=== PATIENT | male | born 1940 | race Caucasian/White ===

== ENCOUNTER 2017-03-12 06:44 | Inpatient (IN) | payer OTHER ==
[~2017-03-12] VITALS: Ht 182.9 cm; Wt 97.5 kg
[2017-03-12] VITALS (11 sets, daily range): BP systolic 110–148; BP diastolic 54–74
[2017-03-12 07:14] LABS: HEMATOCRIT 25.6 % (38.0-50.0); HEMOGLOBIN 8.1 G/DL (12.5-16.6); MCH 30.9 PG (29.0-34.0); MCHC 31.6 G/DL (30.0-36.0); MCV 97.7 FL (86-99); NRBC (%) 12.7 /100 WBC (0-0); PLATELET COUNT 80 K/uL (156-360); RBC DIS.WIDTH-CV 22.5 % (11.8-14.6); RBC DIS.WIDTH-SD 79.3 % (39-53); RED BLOOD COUNT 2.62 M/uL (4.00-5.50)
[2017-03-12 07:24] LABS: BASOPHIL (%) 0.3 % (0-1); EOSINOPHIL (%) 0.2 % (0-5); IMMATURE GRANULOCYTE (%) 3.5 % (0.0-0.7); LYMPHOCYTE (%) 9.1 % (15-42); LYMPHOCYTE COUNT 0.6 K/uL (1.0-2.8); MONOCYTE (%) 8.3 % (3-12); MONOCYTE COUNT 0.5 K/uL (0-0.8); NEUTROPHIL (%) 78.6 % (45-76); NEUTROPHIL COUNT 4.8 K/uL (1.8-6.4)
[2017-03-12 07:29] LABS: PTT 25.6 SEC (25-37)
[2017-03-12 07:37] LABS: TROP-I INTERPRETATION NEGATIVE; TROPONIN-I 0.17 ng/mL (0.0-0.30)
[2017-03-12 07:46] LABS: CHLORIDE 97 mEq/L (99-109); POTASSIUM 4.3 mEq/L (3.7-5.4); SODIUM 135 mEq/L (136-147)
[2017-03-12 07:48] LABS: GLUCOSE 129 mg/dL (70-99)
[2017-03-12 07:52] LABS: GFR ESTIMATE (CALCULATED) > 59 mL/min/ (58.99-99999); UREA NITROGEN (BUN) 32 mg/dL (9-23)
[2017-03-12 09:49] LABS: DIGOXIN 1.2 ng/mL (0.8-2.0)
[2017-03-12] MEDS ORDERED: LO-DOSE ASPIRIN81 M1 PO (11:28)
[2017-03-12] MEDS ORDERED: LIPITOR10 MG PO (11:29)
[2017-03-12] MEDS ORDERED: ATORVASTATIN CA10 MG PO (11:30)
[2017-03-12] MEDS ORDERED: CASODEX50 MG PO (11:32)
[2017-03-12] MEDS ORDERED: COUMADIN2.5 MG PO (11:33)
[2017-03-12] MEDS ORDERED: DIGOXIN125 MCG PO (11:34)
[2017-03-12] MEDS ORDERED: MIRALAX17 GM PO (11:35)
[2017-03-12] MEDS ORDERED: FOLIC ACID1 MG PO (11:35)
[2017-03-12] MEDS ORDERED: FLOMAX0.4 MG PO (11:36)
[2017-03-12] MEDS ORDERED: VENLAFAXINE HCL75 M3 PO (11:37)
[2017-03-12] MEDS ORDERED: TUMS500 MG PO (11:38)
[2017-03-12] MEDS ORDERED: PREDNISONE10 MG PO (11:38)
[2017-03-12 11:39] LABS: HEMATOCRIT 24.6 % (38.0-50.0); HEMOGLOBIN 7.8 G/DL (12.5-16.6); MCV 96.9 FL (86-99)
[2017-03-12] MEDS ORDERED: COMPAZINE10 MG PO (11:39)
[2017-03-12] MEDS ORDERED: AMBIEN5 MG PO (11:40)
[2017-03-12] MEDS ORDERED: ACETAMINOPHEN325 M1 PO (11:40)
[2017-03-12] MEDS ORDERED: MORPHINE SULFAT15 MG PO (11:43)
[2017-03-12 12:10] LABS: ALBUMIN 3.2 g/dL (3.2-4.8)
[2017-03-12 12:13] LABS: TOTAL PROTEIN 5.5 g/dL (6.4-8.3)
[2017-03-12 12:15] LABS: TOTAL BILIRUBIN 1.1 mg/dL (0.0-1.0)
[2017-03-12 12:16] LABS: ALKALINE PHOSPHATASE 1378 IU/L (3-129)
[2017-03-12 12:18] LABS: AST (GOT) 31 IU/L (2-34); DIRECT BILIRUBIN 0.6 mg/dL (0.0-0.3)
[2017-03-12 12:19] LABS: ALT (GPT) 35 IU/L (3-49)
[2017-03-12 14:02] LABS: APPEARANCE SL.HAZY ((CLEAR)); BILIRUBIN NEGATIVE; BLOOD MODERATE; COLOR YELLOW ((YELLOW)); GLUCOSE (STRIP) NEGATIVE; KETONES 5; LEUKOCYTES NEGATIVE; NITRITE NEGATIVE; PROTEIN (STRIP) NEGATIVE; SPECIFIC GRAVITY 1.017 (1.000-1.030); UROBILINOGEN 0.2 MG/DL (0.2-1.0)
[2017-03-12 14:14] LABS: BACTERIA NONE SEEN /HPF; EPITHELIAL CELLS RARE /HPF; HYALINE CASTS 0-5 /LPF; MUCUS TRACE /LPF; RED BLOOD CELLS 15-20 /HPF (0-5); WHITE BLOOD CELLS 0-5 /HPF (0-5)
[2017-03-13] VITALS (7 sets, daily range): BP systolic 124–152; BP diastolic 58–78
[2017-03-13 02:08] LABS: HEMATOCRIT 30.9 % (38.0-50.0)
[2017-03-13 02:09] LABS: HEMOGLOBIN 9.8 G/DL (12.5-16.6); MCV 89.6 FL (86-99)
[2017-03-13 06:26] LABS: HEMATOCRIT 32.3 % (38.0-50.0); MCH 27.5 PG (29.0-34.0); NRBC (%) 5.5 /100 WBC (0-0); PLATELET COUNT 74 K/uL (156-360); RBC DIS.WIDTH-CV 26.1 % (11.8-14.6); RBC DIS.WIDTH-SD 81.1 % (39-53); WHITE BLOOD COUNT 6.2 K/uL (4.1-10.2)
[2017-03-13 06:32] LABS: INTER. NORMALIZED RATIO 1.9
[2017-03-13 06:42] LABS: RED BLOOD COUNT 3.63 M/uL (4.00-5.50)
[2017-03-13 06:57] LABS: CHLORIDE 98 MEQ/L (99-109); CREATININE 0.9 MG/DL (0.6-1.3); GFR ESTIMATE (CALCULATED) > 59 mL/min/ (58.99-99999); GLUCOSE 120 mg/dL (70-99); POTASSIUM 4.3 MEQ/L (3.7-5.4); SODIUM 135 MEQ/L (136-147); UREA NITROGEN (BUN) 28 mg/dL (9-23)
[2017-03-13 07:55] LABS: ALBUMIN 3.2 G/DL (3.2-4.8); ALKALINE PHOSPHATASE 1156 IU/L (3-129); ALT (GPT) 35 IU/L (3-49); AST (GOT) 31 IU/L (2-34); DIRECT BILIRUBIN 0.4 mg/dL (0.0-0.3); TOTAL BILIRUBIN 1.4 MG/DL (0.0-1.0)
[2017-03-14] VITALS (8 sets, daily range): BP systolic 120–157; BP diastolic 57–80
[2017-03-14 05:54] LABS: HEMATOCRIT 30.9 % (38.0-50.0); HEMOGLOBIN 9.8 G/DL (12.5-16.6); MCH 28.2 PG (29.0-34.0); MCHC 31.7 G/DL (30.0-36.0); NRBC (%) 4.8 /100 WBC (0-0); PLATELET COUNT 70 K/uL (156-360); RBC DIS.WIDTH-CV 25.8 % (11.8-14.6); RBC DIS.WIDTH-SD 79.5 % (39-53); RED BLOOD COUNT 3.47 M/uL (4.00-5.50)
[2017-03-14 05:58] LABS: INTER. NORMALIZED RATIO 2.1
[2017-03-14 06:30] LABS: CHLORIDE 98 MEQ/L (99-109); CREATININE 0.9 MG/DL (0.6-1.3); GFR ESTIMATE (CALCULATED) > 59 mL/min/ (58.99-99999); GLUCOSE 131 mg/dL (70-99); POTASSIUM 4.2 MEQ/L (3.7-5.4); SODIUM 135 MEQ/L (136-147); UREA NITROGEN (BUN) 21 mg/dL (9-23)
[2017-03-15 03:42] VITALS: BP 122/68
[2017-03-15 06:45] LABS: INTER. NORMALIZED RATIO 1.9
[2017-03-15 06:47] LABS: PTT 27.9 SEC (25-37)
[2017-03-15 06:53] LABS: CHLORIDE 100 MEQ/L (99-109); CREATININE 0.9 MG/DL (0.6-1.3); GFR ESTIMATE (CALCULATED) > 59 mL/min/ (58.99-99999); GLUCOSE 112 mg/dL (70-99); POTASSIUM 3.9 MEQ/L (3.7-5.4); SODIUM 138 MEQ/L (136-147); UREA NITROGEN (BUN) 17 mg/dL (9-23)
[2017-03-15 07:06] VITALS: BP 124/61
[2017-03-15 07:06] LABS: HEMATOCRIT 31.2 % (38.0-50.0); HEMOGLOBIN 9.9 G/DL (12.5-16.6); MCH 28.5 PG (29.0-34.0); MCHC 31.7 G/DL (30.0-36.0); MCV 89.9 FL (86-99); NRBC (%) 2.1 /100 WBC (0-0); PLATELET COUNT 71 K/uL (156-360); RBC DIS.WIDTH-CV 25.6 % (11.8-14.6); RED BLOOD COUNT 3.47 M/uL (4.00-5.50); WHITE BLOOD COUNT 4.8 K/uL (4.1-10.2)
[2017-03-15 11:48] VITALS: BP 168/95
[2017-03-15 15:17] VITALS: BP 133/67
[2017-03-15 19:09] VITALS: BP 120/59
[2017-03-15 23:22] VITALS: BP 119/67
[2017-03-16 03:30] VITALS: BP 159/79
[2017-03-16 07:44] LABS: INTER. NORMALIZED RATIO 2.1
[2017-03-16 08:02] VITALS: BP 115/70
[2017-03-16 08:36] LABS: HEMATOCRIT 32.3 % (38.0-50.0); MCV 90.5 FL (86-99); PLATELET COUNT 76 K/uL (156-360); RBC DIS.WIDTH-CV 25.6 % (11.8-14.6); RBC DIS.WIDTH-SD 84.6 % (39-53); RED BLOOD COUNT 3.57 M/uL (4.00-5.50)
[2017-03-16 11:30] VITALS: BP 123/67
[2017-03-16] MEDS ORDERED: LOPRESSOR25 MG PO (15:21)
[2017-03-16 15:58] VITALS: BP 134/64
[2017-03-16 16:21] LABS: ALBUMIN 3.1 G/DL (3.2-4.8); ALKALINE PHOSPHATASE 851 IU/L (3-129); ALT (GPT) 35 IU/L (3-49); AST (GOT) 23 IU/L (2-34); CHLORIDE 101 MEQ/L (99-109); CREATININE 0.8 MG/DL (0.6-1.3); GFR ESTIMATE (CALCULATED) > 59 mL/min/ (58.99-99999); GLUCOSE 141 mg/dL (70-99); MAGNESIUM 2.1 mg/dl (1.3-2.7); POTASSIUM 3.9 MEQ/L (3.7-5.4); SODIUM 137 MEQ/L (136-147); TOTAL BILIRUBIN 1.2 MG/DL (0.0-1.0); TOTAL PROTEIN 5.3 G/DL (6.4-8.3); UREA NITROGEN (BUN) 18 mg/dL (9-23)
[2017-03-16 18:11] LABS: INTACT PARATHYROID HORMONE 304 pg/mL (10-69)
[2017-03-16 19:05] VITALS: BP 125/68
[2017-03-17 00:35] VITALS: BP 165/114
[2017-03-17 04:30] VITALS: BP 131/65
[2017-03-17 08:42] LABS: HEMATOCRIT 30.6 % (38.0-50.0); HEMOGLOBIN 9.4 G/DL (12.5-16.6); MCH 27.6 PG (29.0-34.0); WHITE BLOOD COUNT 2.4 K/uL (4.1-10.2)
[2017-03-17 08:43] LABS: IMM.RETIC FRACTION 20.6 % (3-19); MCHC 30.7 G/DL (30.0-36.0); NRBC (%) 3.3 /100 WBC (0-0); PLATELET COUNT 71 K/uL (156-360); RBC DIS.WIDTH-CV 25.6 % (11.8-14.6); RBC DIS.WIDTH-SD 83.6 % (39-53); RETIC HGB EQUIVALENT 34.7 (28-36); RETICULOCYTE COUNT 3.3 % (0.5-1.8)
[2017-03-17 08:44] VITALS: BP 145/70
[2017-03-17 09:13] LABS: CHLORIDE 100 MEQ/L (99-109); CREATININE 0.9 MG/DL (0.6-1.3); GAMMA-GT 52 IU/L (4-73); GFR ESTIMATE (CALCULATED) > 59 mL/min/ (58.99-99999); GLUCOSE 146 mg/dL (70-99); POTASSIUM 3.8 MEQ/L (3.7-5.4); SODIUM 138 MEQ/L (136-147); UREA NITROGEN (BUN) 20 mg/dL (9-23)
[2017-03-17 09:14] LABS: ALBUMIN 2.9 G/DL (3.2-4.8); ALKALINE PHOSPHATASE 757 IU/L (3-129); ALT (GPT) 32 IU/L (3-49); AST (GOT) 19 IU/L (2-34); DIRECT BILIRUBIN 0.4 mg/dL (0.0-0.3); TOTAL BILIRUBIN 1.2 MG/DL (0.0-1.0); TOTAL PROTEIN 4.9 G/DL (6.4-8.3)
[2017-03-17 09:31] LABS: LACTATE DEHYDROGENASE 420 IU/L (20-246)
[2017-03-17 09:38] LABS: FIBRINOGEN 420 mg/dL (150-450); INTER. NORMALIZED RATIO 1.9
[2017-03-17 11:16] VITALS: BP 122/69
[2017-03-17 15:40] VITALS: BP 1616/77
[2017-03-17 20:04] VITALS: BP 153/82
[2017-03-18] VITALS (7 sets, daily range): BP systolic 120–154; BP diastolic 67–91
[2017-03-18 07:20] LABS: HEMATOCRIT 27.1 % (38.0-50.0); HEMOGLOBIN 8.5 G/DL (12.5-16.6); MCH 28.2 PG (29.0-34.0); MCHC 31.4 G/DL (30.0-36.0); NRBC (%) 3.2 /100 WBC (0-0); PLATELET COUNT 72 K/uL (156-360); RBC DIS.WIDTH-CV 25.2 % (11.8-14.6); RED BLOOD COUNT 3.01 M/uL (4.00-5.50)
[2017-03-18 07:21] LABS: WHITE BLOOD COUNT 1.9 K/uL (4.1-10.2)
[2017-03-18 07:37] LABS: CHLORIDE 97 MEQ/L (99-109); CREATININE 0.8 MG/DL (0.6-1.3); GFR ESTIMATE (CALCULATED) > 59 mL/min/ (58.99-99999); GLUCOSE 135 mg/dL (70-99); POTASSIUM 4.1 MEQ/L (3.7-5.4); SODIUM 134 MEQ/L (136-147); UREA NITROGEN (BUN) 23 mg/dL (9-23)
[2017-03-18 07:43] LABS: INTER. NORMALIZED RATIO 1.8
[2017-03-19 04:00] VITALS: BP 146/88
[2017-03-19 06:14] LABS: CHLORIDE 96 MEQ/L (99-109); GFR ESTIMATE (CALCULATED) > 59 mL/min/ (58.99-99999); GLUCOSE 136 mg/dL (70-99); HEMATOCRIT 29.5 % (38.0-50.0); HEMOGLOBIN 9.2 G/DL (12.5-16.6); MCHC 31.2 G/DL (30.0-36.0); MCV 89.7 FL (86-99); NRBC (%) 5.7 /100 WBC (0-0); PLATELET COUNT 69 K/uL (156-360); POTASSIUM 4.3 MEQ/L (3.7-5.4); RBC DIS.WIDTH-CV 24.7 % (11.8-14.6); RBC DIS.WIDTH-SD 79.9 % (39-53); RED BLOOD COUNT 3.29 M/uL (4.00-5.50); SODIUM 133 MEQ/L (136-147); UREA NITROGEN (BUN) 25 mg/dL (9-23)
[2017-03-19 06:16] LABS: INTER. NORMALIZED RATIO 2.1
[2017-03-19 06:18] LABS: WHITE BLOOD COUNT 1.7 K/uL (4.1-10.2)
[2017-03-19 07:26] VITALS: BP 141/63
[2017-03-19 08:48] LABS: ALBUMIN 2.7 G/DL (3.2-4.8); ALKALINE PHOSPHATASE 693 IU/L (3-129); ALT (GPT) 23 IU/L (3-49); AST (GOT) 16 IU/L (2-34); DIRECT BILIRUBIN 0.3 mg/dL (0.0-0.3); TOTAL PROTEIN 4.7 G/DL (6.4-8.3)
[2017-03-19 08:51] LABS: TOTAL BILIRUBIN 0.9 MG/DL (0.0-1.0)
[2017-03-19 11:04] VITALS: BP 110/55
[2017-03-19 14:52] LABS: APPEARANCE CLEAR ((CLEAR)); BILIRUBIN NEGATIVE; BLOOD LARGE; COLOR YELLOW ((YELLOW)); GLUCOSE (STRIP) NEGATIVE; KETONES NEGATIVE; LEUKOCYTES NEGATIVE; NITRITE NEGATIVE; PROTEIN (STRIP) NEGATIVE; SPECIFIC GRAVITY 1.012 (1.000-1.030); UROBILINOGEN 0.2 MG/DL (0.2-1.0)
[2017-03-19 14:55] LABS: BACTERIA 1+ /HPF; EPITHELIAL CELLS NONE SEEN /HPF; MUCUS TRACE /LPF; RED BLOOD CELLS 30-40 /HPF (0-5); UCUL ADDED? YES
[2017-03-19 16:18] VITALS: BP 139/72
[2017-03-19 19:00] VITALS: BP 167/77
[2017-03-19 23:00] VITALS: BP 136/75
[2017-03-20 03:00] VITALS: BP 166/94
[2017-03-20 04:55] LABS: ALBUMIN 2.4 g/dL (3.2-4.8)
[2017-03-20 04:56] LABS: CHLORIDE 103 mEq/L (99-109); POTASSIUM 4.1 mEq/L (3.7-5.4); SODIUM 137 mEq/L (136-147)
[2017-03-20 04:58] LABS: GLUCOSE 166 mg/dL (70-99); HEMATOCRIT 27.4 % (38.0-50.0); HEMOGLOBIN 8.7 G/DL (12.5-16.6); MCH 28.6 PG (29.0-34.0); MCHC 31.8 G/DL (30.0-36.0); MCV 90.1 FL (86-99); NRBC (%) 1.9 /100 WBC (0-0); PLATELET COUNT 62 K/uL (156-360); RBC DIS.WIDTH-CV 25.1 % (11.8-14.6); RBC DIS.WIDTH-SD 82.1 % (39-53); RED BLOOD COUNT 3.04 M/uL (4.00-5.50); TOTAL PROTEIN 4.6 g/dL (6.4-8.3)
[2017-03-20 04:59] LABS: WHITE BLOOD COUNT 1.6 K/uL (4.1-10.2)
[2017-03-20 05:00] LABS: TOTAL BILIRUBIN 0.7 mg/dL (0.0-1.0)
[2017-03-20 05:01] LABS: ALKALINE PHOSPHATASE 657 IU/L (3-129)
[2017-03-20 05:02] LABS: CREATININE 0.8 mg/dL (0.6-1.3); GFR ESTIMATE (CALCULATED) > 59 mL/min/ (58.99-99999)
[2017-03-20 05:03] LABS: AST (GOT) 21 IU/L (2-34); UREA NITROGEN (BUN) 20 mg/dL (9-23)
[2017-03-20 05:05] LABS: ALT (GPT) 26 IU/L (3-49)
[2017-03-20 05:34] LABS: ABS NEUTROPHIL COUNT 1.1; ACANTHOCYTES 1+; ANISOCYTOSIS 1+; EOSINOPHIL ABS CT 0; MICROCYTOSIS 1+; MYELOCYTES 1.2 %; OVALOCYTES 1+; PLAT.SUFFICIENCY DECREASED; POIKILOCYTOSIS 1+; SEG.NEUTROPHILS 67.8 % (46.0-76.0); TEAR DROP CELLS 1+
[2017-03-20 08:30] VITALS: BP 154/73
[2017-03-20 11:09] VITALS: BP 137/77
[2017-03-20 15:36] VITALS: BP 133/75
[2017-03-20 20:00] VITALS: BP 169/71
[2017-03-20 23:55] VITALS: BP 170/82
[2017-03-21 04:00] VITALS: BP 149/96
[2017-03-21 07:30] VITALS: BP 124/75
[2017-03-21 07:34] LABS: INTER. NORMALIZED RATIO 2.3
[2017-03-21 12:33] VITALS: BP 162/88
[2017-03-21 14:25] LABS: HEMATOCRIT 30.7 % (38.0-50.0); HEMOGLOBIN 9.4 G/DL (12.5-16.6); MCH 28.1 PG (29.0-34.0); MCHC 30.6 G/DL (30.0-36.0); MCV 91.9 FL (86-99); NRBC (%) 0.8 /100 WBC (0-0); PLATELET COUNT 72 K/uL (156-360); RBC DIS.WIDTH-CV 25.2 % (11.8-14.6); RBC DIS.WIDTH-SD 85.3 % (39-53); RED BLOOD COUNT 3.34 M/uL (4.00-5.50); WHITE BLOOD COUNT 4.8 K/uL (4.1-10.2)
[2017-03-21 14:57] LABS: ALBUMIN 2.9 G/DL (3.2-4.8); ALKALINE PHOSPHATASE 592 IU/L (3-129); ALT (GPT) 28 IU/L (3-49); CHLORIDE 104 MEQ/L (99-109); CREATININE 0.8 MG/DL (0.6-1.3); DIRECT BILIRUBIN 0.2 mg/dL (0.0-0.3); GFR ESTIMATE (CALCULATED) > 59 mL/min/ (58.99-99999); GLUCOSE 171 mg/dL (70-99); POTASSIUM 4.1 MEQ/L (3.7-5.4); SODIUM 137 MEQ/L (136-147); TOTAL PROTEIN 5.1 G/DL (6.4-8.3)
[2017-03-21 15:16] LABS: AST (GOT) 25 IU/L (2-34); TOTAL BILIRUBIN 0.6 MG/DL (0.0-1.0); UREA NITROGEN (BUN) 31 mg/dL (9-23)
[2017-03-21 16:00] VITALS: BP 149/72
[2017-03-21 20:00] VITALS: BP 163/104
[2017-03-21 23:55] VITALS: BP 166/111
[2017-03-22 04:00] VITALS: BP 175/109
[2017-03-22 05:49] LABS: HEMATOCRIT 32.8 % (38.0-50.0); HEMOGLOBIN 10.3 G/DL (12.5-16.6); MCH 28.8 PG (29.0-34.0); MCHC 31.4 G/DL (30.0-36.0); MCV 91.6 FL (86-99); NRBC (%) 1.1 /100 WBC (0-0); RBC DIS.WIDTH-CV 25.1 % (11.8-14.6); RED BLOOD COUNT 3.58 M/uL (4.00-5.50); WHITE BLOOD COUNT 7.1 K/uL (4.1-10.2)
[2017-03-22 05:56] LABS: INTER. NORMALIZED RATIO 2.8
[2017-03-22 06:56] LABS: ALBUMIN 2.9 G/DL (3.2-4.8); ALKALINE PHOSPHATASE 667 IU/L (3-129); ALT (GPT) 33 IU/L (3-49); AST (GOT) 30 IU/L (2-34); CHLORIDE 104 MEQ/L (99-109); CREATININE 0.9 MG/DL (0.6-1.3); GFR ESTIMATE (CALCULATED) > 59 mL/min/ (58.99-99999); GLUCOSE 148 mg/dL (70-99); POTASSIUM 4.4 MEQ/L (3.7-5.4); SODIUM 139 MEQ/L (136-147); TOTAL PROTEIN 5.2 G/DL (6.4-8.3); UREA NITROGEN (BUN) 32 mg/dL (9-23)
[2017-03-22 06:58] LABS: TOTAL BILIRUBIN 0.8 MG/DL (0.0-1.0)
[2017-03-22 06:59] LABS: ABS NEUTROPHIL COUNT 6.1; ANISOCYTOSIS 2+; BAND NEUTROPHILS 10.5 % (0-8.0); EOSINOPHIL ABS CT 0; MACROCYTES 1+; METAMYELOCYTES 3.5 %; MICROCYTOSIS 1+; MONOCYTES 6.2 % (0-9.0); MYELOCYTES 2.6 %; NUCLEATED RBC'S 0.9; PLAT.SUFFICIENCY DECREASED; PLATELET COUNT 78 K/uL (156-360); POIKILOCYTOSIS 1+; SEG.NEUTROPHILS 75.4 % (46.0-76.0)
[2017-03-22 07:01] LABS: LYMPHOCYTES 1.8 % (15.0-45.0)
[2017-03-22 07:18] VITALS: BP 164/97
[2017-03-22 12:51] VITALS: BP 175/87
[2017-03-22 15:42] VITALS: BP 140/82
[2017-03-22 18:15] LABS: HEMATOCRIT 32.9 % (38.0-50.0); HEMOGLOBIN 10.2 G/DL (12.5-16.6); MCV 90.4 FL (86-99)
[2017-03-22 18:27] LABS: INTER. NORMALIZED RATIO 3.8
[2017-03-22 19:50] VITALS: BP 123/73
[2017-03-22 23:30] VITALS: BP 165/88
[2017-03-23 03:14] VITALS: BP 168/86
[2017-03-23 07:56] VITALS: BP 182/98
[2017-03-23 08:57] LABS: HEMATOCRIT 32.6 % (38.0-50.0); HEMOGLOBIN 10.1 G/DL (12.5-16.6); MCH 28.5 PG (29.0-34.0); MCV 92.1 FL (86-99); NRBC (%) 2.4 /100 WBC (0-0); PLATELET COUNT 77 K/uL (156-360); RBC DIS.WIDTH-CV 25.3 % (11.8-14.6); RBC DIS.WIDTH-SD 85.2 % (39-53); RED BLOOD COUNT 3.54 M/uL (4.00-5.50); WHITE BLOOD COUNT 9.5 K/uL (4.1-10.2)
[2017-03-23 09:02] LABS: INTER. NORMALIZED RATIO 3.9
[2017-03-23 09:28] LABS: ALBUMIN 2.9 G/DL (3.2-4.8); ALKALINE PHOSPHATASE 594 IU/L (3-129); ALT (GPT) 41 IU/L (3-49); AST (GOT) 35 IU/L (2-34); CHLORIDE 106 MEQ/L (99-109); CREATININE 0.9 MG/DL (0.6-1.3); GFR ESTIMATE (CALCULATED) > 59 mL/min/ (58.99-99999); GLUCOSE 161 mg/dL (70-99); POTASSIUM 4.5 MEQ/L (3.7-5.4); SODIUM 138 MEQ/L (136-147); TOTAL BILIRUBIN 0.8 MG/DL (0.0-1.0); TOTAL PROTEIN 4.9 G/DL (6.4-8.3); UREA NITROGEN (BUN) 38 mg/dL (9-23)
[2017-03-23 09:37] LABS: ABS NEUTROPHIL COUNT 8.6; ANISOCYTOSIS 1+; BAND NEUTROPHILS 7.2 % (0-8.0); EOSINOPHIL ABS CT 0; HEMATOLOGY COMMENT 1 SN; LYMPHOCYTES 4.5 % (15.0-45.0); MICROCYTOSIS 1+; MONOCYTES 5.4 % (0-9.0); NUCLEATED RBC'S 4.5; PLAT.SUFFICIENCY DECREASED; POIKILOCYTOSIS 1+; POLYCHROMASIA 1+; SEG.NEUTROPHILS 82.9 % (46.0-76.0); SPHEROCYTES 1+
[2017-03-23 11:20] VITALS: BP 128/66
[2017-03-23 15:46] VITALS: BP 155/80
[2017-03-23 20:21] VITALS: BP 144/80
[2017-03-23 23:38] VITALS: BP 174/87
[2017-03-24] VITALS (7 sets, daily range): BP systolic 129–176; BP diastolic 71–90
[2017-03-24 09:45] LABS: HEMATOCRIT 33.3 % (38.0-50.0); HEMOGLOBIN 10.6 G/DL (12.5-16.6); MCHC 31.8 G/DL (30.0-36.0); MCV 91.2 FL (86-99); NRBC (%) 2.4 /100 WBC (0-0); PLATELET COUNT 82 K/uL (156-360); RBC DIS.WIDTH-CV 25.3 % (11.8-14.6); RBC DIS.WIDTH-SD 84.7 % (39-53); RED BLOOD COUNT 3.65 M/uL (4.00-5.50); WHITE BLOOD COUNT 12.8 K/uL (4.1-10.2)
[2017-03-24 10:16] LABS: ALBUMIN 2.9 G/DL (3.2-4.8); ALKALINE PHOSPHATASE 575 IU/L (3-129); ALT (GPT) 43 IU/L (3-49); AST (GOT) 33 IU/L (2-34); CHLORIDE 107 MEQ/L (99-109); CREATININE 0.9 MG/DL (0.6-1.3); GFR ESTIMATE (CALCULATED) > 59 mL/min/ (58.99-99999); GLUCOSE 185 mg/dL (70-99); SODIUM 141 MEQ/L (136-147); TOTAL BILIRUBIN 0.9 MG/DL (0.0-1.0); UREA NITROGEN (BUN) 39 mg/dL (9-23)
[2017-03-25] VITALS (8 sets, daily range): BP systolic 103–168; BP diastolic 58–85
[2017-03-25 07:19] LABS: HEMATOCRIT 30.3 % (38.0-50.0); HEMOGLOBIN 9.4 G/DL (12.5-16.6); MCH 28.7 PG (29.0-34.0); MCV 92.7 FL (86-99); NRBC (%) 7.8 /100 WBC (0-0); PLATELET COUNT 72 K/uL (156-360); RBC DIS.WIDTH-CV 25.5 % (11.8-14.6); RBC DIS.WIDTH-SD 86.4 % (39-53); RED BLOOD COUNT 3.27 M/uL (4.00-5.50); WHITE BLOOD COUNT 4.5 K/uL (4.1-10.2)
[2017-03-25 07:44] LABS: INTER. NORMALIZED RATIO 2.5
[2017-03-25 07:51] LABS: ALBUMIN 2.4 G/DL (3.2-4.8); ALKALINE PHOSPHATASE 483 IU/L (3-129); ALT (GPT) 37 IU/L (3-49); AST (GOT) 32 IU/L (2-34); CHLORIDE 112 MEQ/L (99-109); CREATININE 0.9 MG/DL (0.6-1.3); GFR ESTIMATE (CALCULATED) > 59 mL/min/ (58.99-99999); GLUCOSE 160 mg/dL (70-99); POTASSIUM 4.3 MEQ/L (3.7-5.4); SODIUM 143 MEQ/L (136-147); UREA NITROGEN (BUN) 46 mg/dL (9-23)
[2017-03-25 07:52] LABS: TOTAL BILIRUBIN 0.7 MG/DL (0.0-1.0); TOTAL PROTEIN 4.2 G/DL (6.4-8.3)
[2017-03-26 03:40] VITALS: BP 129/93
[2017-03-26 07:40] LABS: INTER. NORMALIZED RATIO 2.8
[2017-03-26 11:51] VITALS: BP 138/52
[2017-03-26 20:41] VITALS: BP 146/82
[2017-03-27 00:17] VITALS: BP 138/72
[2017-03-27 04:23] VITALS: BP 134/74
[2017-03-27 07:46] VITALS: BP 137/89
[2017-03-27 08:13] LABS: INTER. NORMALIZED RATIO 2.7
[2017-03-27 10:52] LABS: HEMATOCRIT 32.9 % (38.0-50.0); HEMOGLOBIN 9.8 G/DL (12.5-16.6); MCH 28.2 PG (29.0-34.0); MCHC 29.8 G/DL (30.0-36.0); MCV 94.5 FL (86-99); NRBC (%) 9.1 /100 WBC (0-0); PLATELET COUNT 76 K/uL (156-360); RBC DIS.WIDTH-CV 26.5 % (11.8-14.6); RED BLOOD COUNT 3.48 M/uL (4.00-5.50); WHITE BLOOD COUNT 2.6 K/uL (4.1-10.2)
[2017-03-27 11:08] LABS: ALBUMIN 2.8 G/DL (3.2-4.8); ALKALINE PHOSPHATASE 501 IU/L (3-129); ALT (GPT) 51 IU/L (3-49); AST (GOT) 41 IU/L (2-34); CHLORIDE 112 MEQ/L (99-109); CREATININE 1.1 MG/DL (0.6-1.3); GFR ESTIMATE (CALCULATED) > 59 mL/min/ (58.99-99999); GLUCOSE 168 mg/dL (70-99); POTASSIUM 4.5 MEQ/L (3.7-5.4); SODIUM 147 MEQ/L (136-147); TOTAL BILIRUBIN 0.8 MG/DL (0.0-1.0); TOTAL PROTEIN 4.6 G/DL (6.4-8.3); UREA NITROGEN (BUN) 54 mg/dL (9-23)
[2017-03-27 11:46] VITALS: BP 148/92
[2017-03-27 15:16] VITALS: BP 148/66
[2017-03-27 19:16] VITALS: BP 178/91
[2017-03-28 00:03] VITALS: BP 177/86
[2017-03-28 04:33] VITALS: BP 159/80
[2017-03-28 07:35] LABS: INTER. NORMALIZED RATIO 2.7
[2017-03-28 08:34] VITALS: BP 162/78
[2017-03-28 17:34] VITALS: BP 142/82
[2017-03-28 20:42] VITALS: BP 132/70
[2017-03-29] VITALS (7 sets, daily range): BP systolic 112–172; BP diastolic 54–93
[2017-03-29 04:58] LABS: HEMATOCRIT 31.8 % (38.0-50.0); HEMOGLOBIN 9.8 G/DL (12.5-16.6); MCHC 30.8 G/DL (30.0-36.0); MCV 94.1 FL (86-99); NRBC (%) 7.8 /100 WBC (0-0); PLATELET COUNT 89 K/uL (156-360); RBC DIS.WIDTH-CV 26.9 % (11.8-14.6); RBC DIS.WIDTH-SD 90.5 % (39-53); RED BLOOD COUNT 3.38 M/uL (4.00-5.50); WHITE BLOOD COUNT 3.7 K/uL (4.1-10.2)
[2017-03-29 05:04] LABS: INTER. NORMALIZED RATIO 2.2
[2017-03-29 05:10] LABS: CHLORIDE 117 mEq/L (99-109); POTASSIUM 4.1 mEq/L (3.7-5.4); SODIUM 151 mEq/L (136-147)
[2017-03-29 05:11] LABS: GLUCOSE 219 mg/dL (70-99)
[2017-03-29 05:15] LABS: CREATININE 1.2 mg/dL (0.6-1.3); GFR ESTIMATE (CALCULATED) > 59 mL/min/ (58.99-99999)
[2017-03-29 05:16] LABS: UREA NITROGEN (BUN) 68 mg/dL (9-23)
[2017-03-29 06:34] LABS: PREALBUMIN 15.4 mg/dL (10-40)
[2017-03-29 10:36] LABS: MAGNESIUM 2.4 mg/dl (1.3-2.7); PHOSPHORUS 1.8 mg/dL (2.5-4.9)
[2017-03-30 05:55] LABS: INTER. NORMALIZED RATIO 1.6
[2017-03-30 05:57] LABS: HEMATOCRIT 34.2 % (38.0-50.0); HEMOGLOBIN 10.3 G/DL (12.5-16.6); MCH 28.4 PG (29.0-34.0); MCHC 30.1 G/DL (30.0-36.0); MCV 94.2 FL (86-99); NRBC (%) 13.7 /100 WBC (0-0); PLATELET COUNT 78 K/uL (156-360); RBC DIS.WIDTH-CV 26.7 % (11.8-14.6); RBC DIS.WIDTH-SD 91.7 % (39-53); RED BLOOD COUNT 3.63 M/uL (4.00-5.50); WHITE BLOOD COUNT 3.8 K/uL (4.1-10.2)
[2017-03-30 06:11] LABS: CHLORIDE 119 MEQ/L (99-109); CREATININE 1.3 MG/DL (0.6-1.3); GFR ESTIMATE (CALCULATED) 57 mL/min/ (58.99-99999); GLUCOSE 193 mg/dL (70-99); POTASSIUM 4.1 MEQ/L (3.7-5.4); SODIUM 154 MEQ/L (136-147); UREA NITROGEN (BUN) 77 mg/dL (9-23)
[2017-03-30 07:50] VITALS: BP 163/87
[2017-03-30 11:52] VITALS: BP 138/85
[2017-03-30 19:44] VITALS: BP 143/73
[2017-03-31] VITALS (7 sets, daily range): BP systolic 105–135; BP diastolic 52–70
[2017-03-31 07:54] LABS: HEMOGLOBIN 9.1 G/DL (12.5-16.6); MCH 28.8 PG (29.0-34.0); MCHC 29.4 G/DL (30.0-36.0); MCV 98.1 FL (86-99); NRBC (%) 21.3 /100 WBC (0-0); PLATELET COUNT 72 K/uL (156-360); RBC DIS.WIDTH-CV 27.4 % (11.8-14.6); RBC DIS.WIDTH-SD 98.2 % (39-53); RED BLOOD COUNT 3.16 M/uL (4.00-5.50)
[2017-03-31 08:03] LABS: INTER. NORMALIZED RATIO 1.5
[2017-03-31 08:15] LABS: CHLORIDE 120 MEQ/L (99-109); GFR ESTIMATE (CALCULATED) 31 mL/min/ (58.99-99999); POTASSIUM 4.4 MEQ/L (3.7-5.4); SODIUM 150 MEQ/L (136-147); UREA NITROGEN (BUN) 96 mg/dL (9-23)
[2017-03-31 08:19] LABS: CREATININE 2.2 MG/DL (0.6-1.3); GLUCOSE 321 mg/dL (70-99)
[2017-04-01 00:30] VITALS: BP 107/71
[2017-04-01 01:04] LABS: BASE EXCESS -3.7 mEq/L (-3 to +3); BICARBONATE 22.1 mEq/L (22-26); CARBOXY HGB 1.5 % (0-5); COMMENTS - BLOOD GASES C+; DEVICE NC; METHEMOGLOBIN 1.4 % (0-1.5); O2 FLOW 3 L/MIN; PCO2 42 mm Hg (35-45); PO2 85 mm Hg (80-100); SITE RR; TOTAL RESP RATE 16 resp/min; pH 7.33 (7.35-7.45)
[2017-04-01 01:10] VITALS: BP 106/62
[2017-04-01 02:00] VITALS: BP 99/61
[2017-04-01 06:00] VITALS: BP 83/53
[2017-04-01 08:00] VITALS: BP 85/51
[2017-04-01 12:00] VITALS: BP 75/40
== END 2017-04-01 16:50 | DRG 377 ==
LOC: EME → EDBD 06:44 → EME 06:44 → 3EAST 09:27 → EDOF 09:27 → ENRESERV 09:29 → CANRESERV 09:29 → ENRESERV 09:50 → 3EAST 11:41 → ENRESERV 03-19 08:47 → 3EAST 03-19 08:49 → ENRESERV 03-19 08:49 → 4EAST 03-19 11:04 → ENRESERV 03-22 06:26 → 3EAST 03-22 06:54 → ENRESERV 04-01 01:21 → 4WEST 04-01 01:23 → ENRESERV 04-01 05:31 → CANRESERV 04-01 12:39 → ENRESERV 04-01 12:39 → 5EAST 04-01 15:26
PROVIDERS: Emergency Medicine; Hospitalist; Internal Medicine; Physician Assistant; Surgery
DX: K92.2 Gastrointestinal hemorrhage, unspecified (principal); D62 Acute posthemorrhagic anemia; N17.9 Acute kidney failure, unspecified; D61.818 Other pancytopenia; A41.9 Sepsis, unspecified organism; J69.0 Pneumonitis due to inhalation of food and vomit; J96.01 Acute respiratory failure with hypoxia; R33.9 Retention of urine, unspecified; R32 Unspecified urinary incontinence; B37.0 Candidal stomatitis; R04.0 Epistaxis; R62.7 Adult failure to thrive; Z51.5 Encounter for palliative care; Z66 Do not resuscitate; C61 Malignant neoplasm of prostate; C79.51 Secondary malignant neoplasm of bone; E46 Unspecified protein-calorie malnutrition; E87.0 Hyperosmolality and hypernatremia; E86.0 Dehydration; R31.9 Hematuria, unspecified; I11.0 Hypertensive heart disease with heart failure; I50.9 Heart failure, unspecified; R79.1 Abnormal coagulation profile; T45.515A Adverse effect of anticoagulants, initial encounter; E78.5 Hyperlipidemia, unspecified; M79.7 Fibromyalgia; F32.9 Major depressive disorder, single episode, unspecified; F41.9 Anxiety disorder, unspecified; I25.10 Atherosclerotic heart disease of native coronary artery without angina pectoris; I42.9 Cardiomyopathy, unspecified; I48.2 Chronic atrial fibrillation; K29.70 Gastritis, unspecified, without bleeding; K42.9 Umbilical hernia without obstruction or gangrene; K57.30 Diverticulosis of large intestine without perforation or abscess without bleeding; K64.2 Third degree hemorrhoids; L89.159 Pressure ulcer of sacral region, unspecified stage; L97.509 Non-pressure chronic ulcer of other part of unspecified foot with unspecified severity; M25.78 Osteophyte, vertebrae; M40.209 Unspecified kyphosis, site unspecified; M48.02 Spinal stenosis, cervical region; I69.391 Dysphagia following cerebral infarction; R13.10 Dysphagia, unspecified; K31.7 Polyp of stomach and duodenum; R59.9 Enlarged lymph nodes, unspecified; Z80.0 Family history of malignant neoplasm of digestive organs; Z82.3 Family history of stroke; Z79.01 Long term (current) use of anticoagulants; Z88.0 Allergy status to penicillin; Z79.82 Long term (current) use of aspirin
CPT/HCPCS: 36600; 70450; 71010; 71045; 71250; 72125; 74176; 74230; 80048; 80053; 80076; 80162; 80202; 81003; 82306; 82803; 82948; 82977; 83010 90; 83605; 83615; 83735; 83880; 83970; 84100; 84134; 84484; 85014; 85018; 85025; 85027; 85046; 85384; 85610; 85730; 86850; 86880; 86900; 86901; 86920; 87040; 87086; 87641; 88305; 88342 TC; 92526 GN; 92610 GN; 92611 GN; 93005; 93306; 93970; 94010; 94640; 94640 76; 94799; 97530 GO; 99202; 99281; 99285; C9113; G0103; J0360; J0692; J1160; J1940; J1956; J2060; J2270; J2920; J3370; J7030; J7042; J7050; J7070; J7512; J9217; P9016; P9017; Q0164; S0030